=== PATIENT | female | born 1980 | race Caucasian/White ===

== ENCOUNTER 2017-02-05 10:38 | Emergency (ER) | payer OTHER ==
[~2017-02-05] VITALS: Ht 162.6 cm; Wt 65.8 kg
[2017-02-05] MEDS ORDERED: PRENATABS FA T1 EACH PO (10:54)
== END 2017-02-05 12:48 | disposition home or self-care (01) ==
LOC: ED 10:38
DX: O20.9 Hemorrhage in early pregnancy, unspecified (principal); Z3A.14 14 weeks gestation of pregnancy
CPT/HCPCS: 76815; 80048; 81001; 84702; 84703; 85025; 86900; 86901; 96374; 99284